=== PATIENT | male | born 1970 | race Two or more races ===

== ENCOUNTER 2021-06-01 15:44 | Emergency (ER) | payer OTHER ==
[~2021-06-01] VITALS: Ht 160 cm; Wt 59.0 kg
[2021-06-01 17:54] VITALS: BP 150/87
[2021-06-01] MEDS ORDERED: diphenhydrAMINE HCL 25 MG CAPSULE PO ONE (18:15)
[2021-06-01] MEDS ORDERED: predniSONE 20 MG TABLET PO ONE (18:15)
[2021-06-01] MEDS ORDERED: FAMOTIDINE 20 MG TABLET. PO ONE (18:15)
--- NOTE | 2021-06-01 19:39 | PHYS DOC ---
Past Medical History Past Surgical History: Other Additional Past Surgical Histo: HERNIA SX X'S 3 (LUIS A DURAN Robert CARDIOVASCULAR SONOGRAPHER) Smoking Status: Never Smoker Alcohol Use: None (LUIS A DURAN Robert CARDIOVASCULAR SONOGRAPHER) General Adult EDM: Chief Complaint: ALLERGIC REACTION HPI: HPI: Abdomen Patient is a 50 year old male presented to the ED today complaining of a rash that began yesterday. Patient states yesterday he had a sore throat and a fever. He took Tylenol, herbal tea, and NyQuil sometime yesterday. He states later he developed a rash throughout his body. Denies any fever. He states this morning he was given Benadryl by the daughter which seemed to alleviate some of the rash. Patient denies any coughing. Denies any nasal congestion. Denies any throat or tongue swelling. Denies any difficulty breathing. Patient states he has taken since he took yesterday previously with no issues. (LUIS A DURAN CARDIOVASCULAR SONOGRAPHER) Review of Systems: Review of Systems: Constitutional: Reports fever Eyes: Denies change in visual acuity. [] HENT: Reports sore throat. Denies nasal congestion Respiratory: Denies cough or shortness of breath. [] Cardiovascular: Denies chest pain or edema. [] GI: Denies abdominal pain, nausea, vomiting, bloody stools or diarrhea. [] : Denies dysuria. [] Musculoskeletal: Denies back pain or joint pain. [] Integument: Reports rash Neurologic: Denies headache, focal weakness or sensory changes. [] Psychiatric: Denies depression or anxiety. [] (ROGERLUIS A Jones CARDIOVASCULAR SONOGRAPHER) Heart Score: C/O Chest Pain: N/A Risk Factors: Risk Factors: DM, Current or recent (<one month) smoker, HTN, HLP, family history of CAD, obesity. Risk Scores: Score 0 - 3: 2.5% MACE over next 6 weeks - Discharge Home Score 4 - 6: 20.3% MACE over next 6 weeks - Admit for Clinical Observation Score 7 - 10: 72.7% MACE over next 6 weeks - Early Invasive Strategies (LUIS A DURAN CARDIOVASCULAR SONOGRAPHER) Current Medications: Current Medications Medications (Trade) Dose Ordered Sig/Juan Start Time Stop Time Status Last Admin Dose Admin Diphenhydramine HCl (Benadryl) 25 mg 1X ONCE 06/01/21 18:15 06/01/21 18:17 DC 06/01/21 18:25 25 MG Famotidine (Pepcid) 20 mg 1X ONCE 06/01/21 18:15 06/01/21 18:17 DC 06/01/21 18:25 20 MG Prednisone (Prednisone) 60 mg 1X ONCE 06/01/21 18:15 06/01/21 18:17 DC 06/01/21 18:25 60 MG (LUIS A DURAN M CARDIOVASCULAR SONOGRAPHER) Allergies: Allergies: Allergies Coded Allergies Type Severity Reaction Last Updated Verified NSAIDS (Non-Steroidal Anti-Inflamma Allergy Unknown 06/01/21 Yes ibuprofen Allergy Unknown 06/01/21 Yes ketorolac Allergy Unknown 06/01/21 Yes (MIGUELA,LUIS A M CARDIOVASCULAR SONOGRAPHER) Physical Exam: PE: Constitutional: Well developed, well nourished, no acute distress, non-toxic appearance. [] HENT: Airway is open. Normocephalic, atraumatic, bilateral external ears normal, oropharynx moist, no oral exudates, nose normal. [] Eyes: PERRLA, EOMI, conjunctiva normal, no discharge. [] Neck: Normal range of motion, no tenderness, supple, no stridor. [] Cardiovascular:Heart rate regular rhythm, no murmur [] Lungs & Thorax: Bilateral breath sounds clear to auscultation [] Abdomen: Bowel sounds normal, soft, no tenderness, no masses, no pulsatile masses. [] Skin: Small amount of erythematous papular rash scattered throughout patient's body. Back: No tenderness, no CVA tenderness. [] Extremities: No tenderness, no cyanosis, no clubbing, ROM intact, no edema. [] Neurologic: Alert and oriented X 3, normal motor function, normal sensory function, no focal deficits noted. [] Psychologic: Affect normal, judgement normal, mood normal. [] (BRITTNIUNGA,LUIS A M CARDIOVASCULAR SONOGRAPHER) Current Patient Data: Labs: Laboratory Tests Test 06/01/21 18:27 SARS-CoV-2 Antigen (Rapid) Positive (NEGATIVE) *A Vital Signs: Vital Signs Date Time Temp Pulse Resp B/P (MAP) Pulse Ox O2 Delivery O2 Flow Rate FiO2 06/01/21 17:54 79 16 150/87 (108) 98 Room Air (MUTLUIS A CHEUNG APRN) EKG: EKG: [] (LUIS A DURAN APRN) Radiology/Procedures: Radiology/Procedures: [] (LUIS A DURAN APRN) Course & Med Decision Making: Course & Med Decision Making Pertinent Labs and Imaging studies reviewed. (See chart for details) This a 50-year-old male patient presented to the ED today complaining of a rash that began yesterday after taking a couple of medicines including Tylenol, NyQuil, and herbal tea. Patient states he was having a fever and sore throat yesterday. Patient is afebrile in the ED. Blood pressure 150/87 with a heart rate of 79. This is likely from some of the decongestants he took yesterday. He has no history of hypertension. He has no chest pain or shortness of breath. Rapid Covid test is positive. Discharge to home home. Follow-up with PCP. Covid education provided as well as quarantine measures. There is a chance the rash he has is a Covid rash or an allergic reaction to some of the medicines or herbal remedies he took yesterday. He is in no distress. Given prednisone, benadryl and pepcid in the Ed and discharged with the same (LUIS A DURAN APRN) Course & Med Decision Making I have reviewed and was available for consultation in the emergency department for this patient that was seen by midlevel provider. Agree with plan. Les Coffman DO (LES COFFMAN DO) Hans Disclaimer: Hans Disclaimer: This electronic medical record was generated, in whole or in part, using a voice recognition dictation system. (LUIS A DURAN APRN) Departure Departure Impression: Primary Impression: Lab test positive for detection of COVID-19 virus Additional Impressions: Sorethroat Fever Qualified Codes: R50.9 - Fever, unspecified Rash Disposition: 01 HOME / SELF CARE / HOMELESS Condition: STABLE Referrals: NO PCP (PCP) Follow-up with your doctor in 1 to 2 weeks Patient Instructions: Rash, Viral Exanthems, Adult, Viral Pharyngitis Additional Instructions: You were evaluated in the emergency room for a rash. You tested positive for COVID-19. Please quarantine yourself for 10 days. Please take Tylenol as needed for fever. You can use salt water gargles. Push fluids, rest, maintain good hand hygiene. We will send you home with prednisone, take it as prescribed until completed. Take Benadryl for the rash. Also take Pepcid for the next 7 days. Scripts Famotidine (FAMOTIDINE) 20 Mg Tablet 20 MG PO DAILY, #6 TAB Prov: LUIS A DURAN APRN 06/01/21 Prednisone (PREDNISONE) 50 Mg Tablet 1 TAB PO DAILY, #4 TAB Prov: LUIS A DURAN APRN 06/01/21 LUIS A DURAN APRN Jun 01, 2021 19:39 LES COFFMAN DO Jun 01, 2021 22:58
[2021-06-01] MEDS ORDERED: FAMO20TA5 PO (19:44)
[2021-06-01] MEDS ORDERED: PRED50TA PO (19:44)
== END 2021-06-01 20:43 | disposition home or self-care (01) ==
LOC: ER 15:44
DX: U07.1 COVID-19 (principal); Z88.6 Allergy status to analgesic agent; Z88.8 Allergy status to other drugs, medicaments and biological substances
CPT/HCPCS: 87426; 99284; J7512; Q0163